=== PATIENT | male | born 1990 | race Caucasian/White ===

== ENCOUNTER 2018-12-10 12:35 | Inpatient (IN) | payer OTHER ==
[~2018-12-10 12:35] MED LIST: METHADONE HCL 10 MG TABLET (FOR DETOX USE ONLY) PO ONE
--- NOTE | 2018-12-10 13:54 | HP ---
COWS - Scale Resting Pulse: 1= [place] 81-100 Sweatin=Flushed/Facial Moisture Restless Observation: 1= Difficult to Sit Still Pupil Size: 1= Pupils >than Normal Bone or Joint Aches: 2= Severe Diffuse Aches Runny Nose/ Eye Tearin= Runny Nose/Eyes GI Upset > 30mins: 2= Nausea/Diarrhea Tremor Observation: 1= Tremor [place], Not Seen Yawning Observation: 0= None Anxiety or Irritability: 2=Irritable/Anxious Goose Flesh Skin: 0=Smooth Skin COWS Score: 14 CIWA Score - Admission Criteria OASAS Guidelines: Admission for Medically Managed Detox: Requires at least one of the followin. CIWA greater than 12 2. Seizures within the past 24 hours 3. Delirium tremens within the past 24 hours 4. Hallucinations within the past 24 hours 5. Acute intervention needed for co occurring medical disorder 6. Acute intervention needed for co occurring psychiatric disorder 7. Severe withdrawal that cannot be handled at a lower level of care (continued vomiting, continued diarrhea, abnormal vital signs) requiring intravenous medication and/or fluids 8. Admission ROS [facility] - [facility] Chief Complaint: " I am going through withdrawal" Allergies/Adverse Reactions: Allergies Allergy/AdvReac Type Severity Reaction Status Date / Time No Known Allergies Allergy Verified 12/10/18 13:15 History of Present Illness: 28 yo male with hx heroin (IV), nicotine and marijuana dependence is here seeking detox d/t withdrawal sx. Reports currently using 6 - 7 bags per day , use since age 20, reports using this amount over the past three months. Utox positive for THC and MOP, KATHERINE = 0.00. Denies medical or psych hx. Denies suicidal / homicidal ideation Denies hx of overdose, blackouts or seizure Reports longest period of sobriety four years, reports relapse three months ago. Last detox [facility] 2013 Exam Limitations: No Limitations - Ebola screening Have you traveled outside of the country in the last 21 days: No Have you had contact with anyone from an Ebola affected area: No Do you have a fever: No - Review of Systems Constitutional: Chills, Loss of Appetite, Changes in sleep, Weakness ( hot and cold) EENT: reports: Tearing, Nose Congestion Respiratory: reports: No Symptoms reported Cardiac: reports: No Symptoms Reported GI: reports: Constipated (last BMtwo days ago), Nausea, Poor Appetite, Poor Fluid Intake Musculoskeletal: reports: Back Pain, Joint Pain Integumentary: reports: No Symptoms Reported Neuro: reports: Weakness Endocrine: reports: See HPI, Increased Thirst Hematology: reports: No Symptoms Reported Psychiatric: reports: Orientated x3, Anxious Other Systems: Reviewed and Negative Patient History - Patient Medical History Hx Anemia: No Hx Asthma: No Hx Chronic Obstructive Pulmonary Disease (COPD): No Hx Cancer: No Hx Cardiac Disorders: No Hx Congestive Heart Failure: No Hx Hypertension: No Hx Hypercholesterolemia: No Hx Pacemaker: No HX Cerebrovascular Accident: No Hx Seizures: No Hx Dementia: No Hx Diabetes: No Hx Gastrointestinal Disorders: No Hx Liver Disease: No Hx Genitourinary Disorders: No Hx Sexually Transmitted Disorders: No Hx Renal Disease (ESRD): No Hx Thyroid Disease: No Hx Human Immunodeficiency Virus (HIV): No (last tested 05/23 did not want to be tested) Hx Hepatitis C: No Hx Depression: No Hx Suicide Attempt: No Hx Bipolar Disorder: No Hx Schizophrenia: No - Patient Surgical History Past Surgical History: No Hx Neurologic Surgery: No Hx Cataract Extraction: No Hx Cardiac Surgery: No Hx Lung Surgery: No Hx Breast Surgery: No Hx Breast Biopsy: No Hx Abdominal Surgery: No Hx Appendectomy: No Hx Cholecystectomy: No Hx Genitourinary Surgery: No Hx Section: No Hx Orthopedic Surgery: No Anesthesia Reaction: No - PPD History Previous Implant?: No Date: 11/18/13 Results: 0mm PPD to be Administered?: Yes - Smoking Cessation Smoking history: Current every day smoker Have you smoked in the past 12 months: Yes Aproximately how many cigarettes per day: 7 Cigars Per Day: 0 Hx Chewing Tobacco Use: No Initiated information on smoking cessation: Yes 'Breaking Loose' booklet given: 12/10/18 - Substance & Tx. History Hx Alcohol Use: Yes Hx Substance Use: Yes Substance Use Type: Alcohol, Heroin, Marijuana Hx Substance Use Treatment: Yes (Detox [facility] 2013) - Substances abused Heroin Substance route: Injection Frequency: Daily Amount used: 6 bags Age of first use: 20 Date of last use: 12/10/18 Alcohol Substance route: Oral Frequency: 1-2 times per week Amount used: 1 beer x 24 oz Age of first use: 16 Date of last use: 12/08/18 Marijuana/Hashish Substance route: Smoking Frequency: Daily Amount used: $10 Age of first use: 16 Date of last use: 12/10/18 Family Disease History - Family Disease History Family History: Denies Admission Physical Exam [facility] - Vital Signs Vital Signs: Vital Signs - 24 hr 12/10/18 12/10/18 13:10 13:42 Temperature 98.1 F 98.2 F Pulse Rate 82 82 Respiratory 18 18 Rate Blood Pressure 141/86 141/86 - Physical General Appearance: Yes: Mild Distress, Thin, Sweating, Anxious HEENTM: Yes: EOMI, Hearing grossly Normal, Normal ENT Inspection, Normocephalic , Normal Voice, MARYSOL, Pharynx Normal, Tm's normal, Rhinorrhea Respiratory: Yes: Chest Non-Tender, Lungs Clear, Normal Breath Sounds, No Respiratory Distress, No Accessory Muscle Use Neck: Yes: Within Normal Limits Breast: Yes: Breast Exam Deferred Cardiology: Yes: Regular Rhythm, Regular Rate Abdominal: Yes: Normal Bowel Sounds, Non Tender, Flat, Soft Genitourinary: Yes: Within Normal Limits Back: Yes: Normal Inspection Musculoskeletal: Yes: full range of Motion, Gait Steady, Pelvis Stable Extremities: Yes: Normal Capillary Refill, Normal Inspection, Normal Range of Motion, Non-Tender 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, Fully Oriented, Alert, Motor Strength 5/5, Depressed Affect Integumentary: Yes: Normal Color, Warm, Diaphoresis, Track [place], Other (facial flushing) Lymphatic: Yes: Within Normal Limits - Diagnostic (1) Opioid dependence with withdrawal Current Visit: Yes Status: Acute (2) Elevated blood pressure reading without diagnosis of hypertension Current Visit: Yes Status: Acute (3) Cannabis dependence Current Visit: Yes Status: Acute (4) Nicotine dependence Current Visit: Yes Status: Acute Qualifiers: Nicotine product type: cigarettes Cleared for Admission [facility] - Detox or Rehab [facility] Level of Care: Medically Managed Detox Regimen/Protocol: Methadone Breathalyzer - Breathalyzer Breathalyzer: 0 Urine Drug Screen - Test Device Lot number: [id number] Expiration date: 08/09/20 - Control Is test valid?: Yes - Results Urine drug screen results: THC-Marijuana, MOP-Opiates Inpatient Rehab Admission - Rehab Decision to Admit Inpatient rehab admission?: No
[2018-12-10] MEDS ORDERED: cloNIDine HCL 0.1 MG TABLET PO PRN (13:59)
[2018-12-10] MEDS ORDERED: MAGNESIUM HYDROX 2400MG/30ML ORAL SUSPENSION 30 ML CUP PO PRN (14:01)
[2018-12-10] MEDS ORDERED: BISMUTH SUBSALICYLATE 524 MG/30 ML UD PO PRN (14:01)
[2018-12-10] MEDS ORDERED: hydrOXYzine PAMOATE 25 MG CAPSULE (FP) PO PRN (14:01)
[2018-12-10] MEDS ORDERED: MAGNESIUM CITRATE 300 ML BOTTLE PO PRN (14:01)
[2018-12-10] MEDS ORDERED: ACETAMINOPHEN 325 MG TABLET (FP) PO PRN ×2 (14:01)
[2018-12-10] MEDS ORDERED: IBUPROFEN 400 MG TABLET (FP) PO PRN (14:01)
[2018-12-10] MEDS ORDERED: MAG HYDROX/AL HYDROX/SIMETH 30 ML UNIT-DOSE CUP PO PRN (14:01)
[2018-12-10] MEDS ORDERED: METHADONE HCL 10 MG TABLET (FOR DETOX USE ONLY) PO ONE ×2 (14:45→23:00)
[2018-12-10] MEDS: NICOTINE POLACRILEX 2 MG GUM BUC PRN ×3 (15:14→22:14)
[2018-12-10 17:02] LABS: HEMATOCRIT 43.5 % (35.4-49); HEMOGLOBIN 14.8 GM/dL (11.7-16.9); MCH 31.1 pg (25.7-33.7); MCHC 34.1 g/dl (32.0-35.9); MEAN CELL VOLUME 91.3 fl (80-96); MEAN PLT VOLUME 9.4 fl (7.5-11.1); PLATELET COUNT 208 K/MM3 (134-434); RBC 4.76 M/mm3 (4.00-5.60); RDW 12.9 % (11.9-15.9); WHITE BLOOD COUNT 9.3 K/mm3 (4.0-10.0)
[2018-12-10 17:39] LABS: ALK PHOS 78 U/L (45-117); ANION GAP 5 MMOL/L (8-16); BILIRUBIN,TOTAL 0.6 mg/dL (0.2-1); BLOOD UREA NITROGEN 10 mg/dL (7-18); CALCIUM 8.8 mg/dL (8.5-10.1); CHLORIDE 107 mmol/L (98-107); CO2 28 mmol/L (21-32); CREATININE 0.9 mg/dL (0.55-1.3); GLUCOSE,RANDOM 92 mg/dL (74-106); SGOT/AST 14 U/L (15-37); SGPT/ALT 31 U/L (13-61); SODIUM 140 mmol/L (136-145)
[2018-12-10] MEDS: diazePAM 5 MG TABLET PO PRN (18:05)
[2018-12-10 19:49] LABS: URINE APPEARANCE CLEAR; URINE BILIRUBIN NEGATIVE (NEGATIVE); URINE COLOR YELLOW; URINE GLUCOSE (UA) 2+ (NEGATIVE); URINE KETONE TRACE (NEGATIVE); URINE LEUK ESTERASE NEGATIVE (NEGATIVE); URINE NITRITE NEGATIVE (NEGATIVE); URINE PROTEIN NEGATIVE (NEGATIVE)
[2018-12-10] MEDS: MELATONIN 5 MG TABLETS PO PRN (22:12)
[2018-12-10] MEDS: THIAMINE HCL 100 MG TABLET (FP) PO SCH (22:12)
--- NOTE | 2018-12-11 09:47 | PN ---
BHS COWS - Scale Resting Pulse: 0= [place] 80 or Below Sweatin=Flushed/Facial Moisture Restless Observation: 1= Difficult to Sit Still Pupil Size: 0= Normal to Room Light Bone or Joint Aches: 0= None Runny Nose/ Eye Tearin= Nasal Congestion GI Upset > 30mins: 1= Stomach Cramp Tremor Observation of Outstretched Hands: 2= Slight Tremor Visible Yawning Observation: 2= >3x During Session Anxiety or Irritability: 2=Irritable/Anxious Goose Flesh Skin: 0=Smooth Skin COWS Score: 11 BHS Progress Note (SOAP) Subjective: agitation anxiety sweats shakes interrupted sleep body aches Objective: 12/11/18 09:45 Vital Signs Temperature 97.0 F L 12/11/18 09:12 Pulse Rate 70 12/11/18 09:12 Respiratory Rate 18 12/11/18 09:12 Blood Pressure 131/89 12/11/18 09:12 O2 Sat by Pulse Oximetry (%) Laboratory Tests 12/10/18 12/10/18 12/10/18 14:20 14:20 14:20 WBC 9.3 RBC 4.76 Hgb 14.8 Hct 43.5 MCV 91.3 MCH 31.1 MCHC 34.1 RDW 12.9 Plt Count 208 MPV 9.4 Sodium 140 Potassium 4.0 Chloride 107 Carbon Dioxide 28 Anion Gap 5 L BUN 10 Creatinine 0.9 Creat Clearance w eGFR 101.22 Random Glucose 92 Calcium 8.8 Total Bilirubin 0.6 AST 14 L ALT 31 Alkaline Phosphatase 78 Total Protein 7.0 Albumin 4.0 Urine Color Urine Appearance Urine pH Ur Specific [place] Urine Protein Urine Glucose (UA) Urine Ketones Urine Blood Urine Nitrite Urine Bilirubin Urine Urobilinogen Ur Leukocyte Esterase HIV 1&2 Antibody Screen Negative HIV P24 Antigen Negative 12/10/18 16:40 WBC RBC Hgb Hct MCV MCH MCHC RDW Plt Count MPV Sodium Potassium Chloride Carbon Dioxide Anion Gap BUN Creatinine Creat Clearance w eGFR Random Glucose Calcium Total Bilirubin AST ALT Alkaline Phosphatase Total Protein Albumin Urine Color Yellow Urine Appearance Clear Urine pH 5.0 Ur Specific [place] 1.022 Urine Protein Negative Urine Glucose (UA) 2+ H Urine Ketones Trace H Urine Blood Negative Urine Nitrite Negative Urine Bilirubin Negative Urine Urobilinogen 1.0 Ur Leukocyte Esterase Negative HIV 1&2 Antibody Screen HIV P24 Antigen aaox3 ambulating no acute distress Assessment: 12/11/18 09:46 withdrawal sx Plan: continue detox increase fluids labs pending
[2018-12-11] MEDS ORDERED: METHADONE HCL 10 MG TABLET (FOR DETOX USE ONLY) PO ONE (10:00)
[2018-12-11] MEDS ORDERED: NICOTINE 14 MG/24 HOURS TOPICAL PATCH TD SCH (10:00)
--- NOTE | 2018-12-11 10:09 | EKG ---
Test Reason : Blood Pressure : / mmHG Vent. Rate : 073 BPM Atrial Rate : 073 BPM P-R Int : 110 ms QRS Dur : 088 ms QT Int : 364 ms P-R-T Axes : 067 081 058 degrees QTc Int : 401 ms SINUS RHYTHM WITH MARKED SINUS ARRHYTHMIA WITH SHORT VT OTHERWISE NORMAL ECG NO PREVIOUS ECGS AVAILABLE Confirmed by ZACH BURGOS MD ([id number]) on 12/11/2018 10:08:51 AM Referred By: Confirmed By:ZACH BURGOS MD
[2018-12-11] MEDS: PRENATAL VITAMINS W/ FOLIC ACID TABLET (FP) PO SCH (10:13)
[2018-12-11] MEDS: diazePAM 5 MG TABLET PO PRN ×3 (12:42→22:12)
[2018-12-11] MEDS: NICOTINE POLACRILEX 2 MG GUM BUC PRN ×4 (12:43→22:10)
[2018-12-11] MEDS: METHOCARBAMOL 500 MG TABLET PO PRN (15:31)
[2018-12-11] MEDS: MENTHOL/PHENOL 1 EACH UD MM PRN (17:36)
[2018-12-11] MEDS: THIAMINE HCL 100 MG TABLET (FP) PO SCH (22:09)
[2018-12-11] MEDS: MELATONIN 5 MG TABLETS PO PRN (22:10)
[2018-12-12] MEDS ORDERED: NICOTINE POLACRILEX 2 MG GUM BC PRN (09:23)
[2018-12-12] MEDS ORDERED: METHADONE HCL 10 MG TABLET (FOR DETOX USE ONLY) PO ONE (10:00)
[2018-12-12] MEDS: NICOTINE 21 MG/24 HOURS TOPICAL PATCH TD SCH (10:25)
[2018-12-12] MEDS: PRENATAL VITAMINS W/ FOLIC ACID TABLET (FP) PO SCH (10:25)
--- NOTE | 2018-12-12 10:37 | PN ---
BHS COWS - Scale Resting Pulse: 1= [place] 81-100 Sweatin= Chills/Flushing Restless Observation: 1= Difficult to Sit Still Pupil Size: 1= Pupils >than Normal Bone or Joint Aches: 2= Severe Diffuse Aches Runny Nose/ Eye Tearin= Runny Nose/Eyes GI Upset > 30mins: 2= Nausea/Diarrhea Tremor Observation of Outstretched Hands: 2= Slight Tremor Visible Yawning Observation: 1= 1-2x During Session Anxiety or Irritability: 2=Irritable/Anxious Goose Flesh Skin: 0=Smooth Skin COWS Score: 15 S Progress Note (SOAP) Subjective: alert,irritable,anxious,interrupted sleep,pain in the body and back Objective: 12/12/18 10:35 Vital Signs Temperature 97.1 F L 12/12/18 10:13 Pulse Rate 86 12/12/18 10:13 Respiratory Rate 18 12/12/18 10:13 Blood Pressure 148/82 12/12/18 10:13 O2 Sat by Pulse Oximetry (%) 12/12/18 10:36 Laboratory Last Values WBC 9.3 K/mm3 (4.0-10.0) 12/10/18 14:20 RBC 4.76 M/mm3 (4.00-5.60) 12/10/18 14:20 Hgb 14.8 GM/dL (11.7-16.9) 12/10/18 14:20 Hct 43.5 % (35.4-49) 12/10/18 14:20 MCV 91.3 fl (80-96) 12/10/18 14:20 MCH 31.1 pg (25.7-33.7) 12/10/18 14:20 MCHC 34.1 g/dl (32.0-35.9) 12/10/18 14:20 RDW 12.9 % (11.9-15.9) 12/10/18 14:20 Plt Count 208 K/MM3 (134-434) 12/10/18 14:20 MPV 9.4 fl (7.5-11.1) 12/10/18 14:20 Sodium 140 mmol/L (136-145) 12/10/18 14:20 Potassium 4.0 mmol/L (3.5-5.1) 12/10/18 14:20 Chloride 107 mmol/L (98-107) 12/10/18 14:20 Carbon Dioxide 28 mmol/L (21-32) 12/10/18 14:20 Anion Gap 5 MMOL/L (8-16) L 12/10/18 14:20 BUN 10 mg/dL (7-18) 12/10/18 14:20 Creatinine 0.9 mg/dL (0.55-1.3) 12/10/18 14:20 Creat Clearance w eGFR 101.22 (>60) 12/10/18 14:20 Random Glucose 92 mg/dL (74-106) 12/10/18 14:20 Calcium 8.8 mg/dL (8.5-10.1) 12/10/18 14:20 Total Bilirubin 0.6 mg/dL (0.2-1) 12/10/18 14:20 AST 14 U/L (15-37) L 12/10/18 14:20 ALT 31 U/L (13-61) 12/10/18 14:20 Alkaline Phosphatase 78 U/L (45-117) 12/10/18 14:20 Total Protein 7.0 g/dl (6.4-8.2) 12/10/18 14:20 Albumin 4.0 g/dl (3.4-5.0) 12/10/18 14:20 Urine Color Yellow 12/10/18 16:40 Urine Appearance Clear 12/10/18 16:40 Urine pH 5.0 (5.0-8.0) 12/10/18 16:40 Ur Specific [place] 1.022 (1.010-1.035) 12/10/18 16:40 Urine Protein Negative (NEGATIVE) 12/10/18 16:40 Urine Glucose (UA) 2+ (NEGATIVE) H 12/10/18 16:40 Urine Ketones Trace (NEGATIVE) H 12/10/18 16:40 Urine Blood Negative (NEGATIVE) 12/10/18 16:40 Urine Nitrite Negative (NEGATIVE) 12/10/18 16:40 Urine Bilirubin Negative (NEGATIVE) 12/10/18 16:40 Urine Urobilinogen 1.0 mg/dL (0.2-1.0) 12/10/18 16:40 Ur Leukocyte Esterase Negative (NEGATIVE) 12/10/18 16:40 RPR Titer Nonreactive (NONREACTIVE) 12/10/18 14:20 HIV 1&2 Antibody Screen Negative 12/10/18 14:20 HIV P24 Antigen Negative 12/10/18 14:20 Assessment: 12/12/18 10:36 withdrawal symptom Plan: continue detox
[2018-12-12] MEDS: diazePAM 5 MG TABLET PO PRN ×3 (10:52→21:52)
[2018-12-12] MEDS: NICOTINE POLACRILEX 2 MG GUM BUC PRN ×3 (16:38→21:53)
[2018-12-12] MEDS: MELATONIN 5 MG TABLETS PO PRN (21:52)
[2018-12-12] MEDS: THIAMINE HCL 100 MG TABLET (FP) PO SCH (21:52)
[2018-12-13] MEDS ORDERED: METHADONE HCL 10 MG TABLET (FOR DETOX USE ONLY) PO ONE (10:00)
[2018-12-13] MEDS: NICOTINE 21 MG/24 HOURS TOPICAL PATCH TD SCH (10:23)
[2018-12-13] MEDS: PRENATAL VITAMINS W/ FOLIC ACID TABLET (FP) PO SCH (10:23)
[2018-12-13] MEDS: diazePAM 5 MG TABLET PO PRN (10:27)
[2018-12-13] MEDS: NICOTINE POLACRILEX 2 MG GUM BUC PRN ×4 (10:28→22:12)
--- NOTE | 2018-12-13 10:58 | PN ---
S Progress Note (SOAP) Subjective: alert,irritable,anxious,interrupted sleep,nasal congestion Objective: 12/13/18 10:58 Vital Signs Temperature 98.5 F 12/13/18 09:35 Pulse Rate 85 12/13/18 09:35 Respiratory Rate 18 12/13/18 09:35 Blood Pressure 147/73 12/13/18 09:35 O2 Sat by Pulse Oximetry (%) Assessment: 12/13/18 10:58 withdrawal symptom Plan: continue detox,discharge in am
[2018-12-13] MEDS: METHOCARBAMOL 500 MG TABLET PO PRN (14:33)
[2018-12-13] MEDS: P-EPHED 60MG/TRIPROLIDI 2.5MG TABLET PO PRN (14:41)
[2018-12-13] MEDS: THIAMINE HCL 100 MG TABLET (FP) PO SCH (22:11)
[2018-12-13] MEDS: MELATONIN 5 MG TABLETS PO PRN (22:11)
[2018-12-14] MEDS: NICOTINE POLACRILEX 2 MG GUM BUC PRN (05:54)
[2018-12-14] MEDS ORDERED: METHADONE HCL 5 MG TABLET (FOR DETOX USE ONLY) PO ONE (06:00)
[2018-12-14 06:20] VITALS: BP 117/67; PULSE 68; TEMP 97.2
[2018-12-14] MEDS: P-EPHED 60MG/TRIPROLIDI 2.5MG TABLET PO PRN (07:42)
[2018-12-14] MEDS: MENTHOL/PHENOL 1 EACH UD MM PRN (07:43)
--- NOTE | 2018-12-14 15:09 | DS ---
[facility] Detox Discharge Summary Admission Date: 12/10/18 Discharge Date: 12/14/18 - History Additional Comments: Pt discharged s/p completion of detox. Verbalized feeling good. Pt states he does not want rehab because he has to return to work, educated pt about out patient rehab and suboxone treatment option. Verbalized understanding and stated he will explore options. He will do NA meeting in the meantime. Narcan rx sent to [facility] pharmacy, verbalized understanding to pick it. Pt was in no distress and ambulated steadily. - Physical Exam Results Vital Signs: Vital Signs Temperature 97.2 F L 12/14/18 06:00 Pulse Rate 68 12/14/18 06:00 Respiratory Rate 18 12/14/18 06:00 Blood Pressure 117/67 12/14/18 06:00 O2 Sat by Pulse Oximetry (%) - Treatment Hospital Course: Detox Protocol Followed, Detoxed Safely, Responded well, Discharged Condition Good - Medication Discharge Medications: Ambulatory Orders Naloxone HCl [Narcan] 4 mg NS PRN #1 spray 12/14/18 - AMA Did Patient Leave Against Medical Advice: No
== END 2018-12-14 08:55 | disposition home or self-care (01) | DRG 773 ==
LOC: YASAS 12:35 → Y6N 14:32
PROVIDERS: ADMIT Surgery; ATTEND Surgery
PROC: HZ2ZZZZ Detoxification Services for Substance Abuse Treatment (ICD-10-PCS; principal; 2018-12-10)
DX: F11.23 Opioid dependence with withdrawal (principal); F10.20 Alcohol dependence, uncomplicated; F12.20 Cannabis dependence, uncomplicated; F17.210 Nicotine dependence, cigarettes, uncomplicated; R03.0 Elevated blood-pressure reading, without diagnosis of hypertension
CPT/HCPCS: 36415; 80053; 81003; 85027; 86593; 87389; 93005; 93010; J0735

== ENCOUNTER 2019-02-02 19:26 | Inpatient (IN) | payer SELFPAY ==
[2019-02-02 20:08] VITALS: BMI 23.0
--- NOTE | 2019-02-02 22:37 | HP ---
COWS - Scale Resting Pulse: 0= [place] 80 or Below Sweatin=Flushed/Facial Moisture Restless Observation: 1= Difficult to Sit Still Pupil Size: 0= Normal to Room Light Bone or Joint Aches: 4=Acute Joint/Muscle Pain Runny Nose/ Eye Tearin= Runny Nose/Eyes GI Upset > 30mins: 3= Vomiting/Diarrhea (vomiting x 5, no diarrhea) Tremor Observation: 2= Slight Tremor Visible Yawning Observation: 1= 1-2x During Session Anxiety or Irritability: 2=Irritable/Anxious Goose Flesh Skin: 3=Piloerection COWS Score: 20 CIWA Score - Admission Criteria OASAS Guidelines: Admission for Medically Managed Detox: Requires at least one of the followin. CIWA greater than 12 2. Seizures within the past 24 hours 3. Delirium tremens within the past 24 hours 4. Hallucinations within the past 24 hours 5. Acute intervention needed for co occurring medical disorder 6. Acute intervention needed for co occurring psychiatric disorder 7. Severe withdrawal that cannot be handled at a lower level of care (continued vomiting, continued diarrhea, abnormal vital signs) requiring intravenous medication and/or fluids 8. Admission [facility] Chief Complaint: Heroin withdrawal symptoms Allergies/Adverse Reactions: Allergies Allergy/AdvReac Type Severity Reaction Status Date / Time No Known Allergies Allergy Verified 02/02/19 22:43 History of Present Illness: 28 years old male with 12 years of heroin dependence is seeking admission to detox. Patient has been in previous detox, last at [facility] and reports 3 years of sobriety. He has history of hypertension and denies suicidal ideation at this time. Exam Limitations: No Limitations - Ebola screening Have you traveled outside of the country in the last 21 days: No (N) Have you had contact with anyone from an Ebola affected area: No Do you have a fever: No - Review of Systems Constitutional: Chills, Loss of Appetite, Malaise, Night Sweats, Changes in sleep EENT: reports: Nose Congestion Respiratory: reports: No Symptoms reported Cardiac: reports: No Symptoms Reported GI: reports: Diarrhea, Nausea, Poor Appetite, Poor Fluid Intake, Abdominal cramping : reports: No Symptoms Reported Musculoskeletal: reports: Joint Pain Integumentary: reports: Dryness, Flushing Neuro: reports: Tremors Endocrine: reports: No Symptoms Reported Hematology: reports: No Symptoms Reported Psychiatric: reports: Mood/Affect Appropiate, Orientated x3, Anxious Other Systems: Reviewed and Negative Patient History - Patient Medical History Hx Anemia: No Hx Asthma: No Hx Chronic Obstructive Pulmonary Disease (COPD): No Hx Cancer: No Hx Cardiac Disorders: No Hx Congestive Heart Failure: No Hx Hypertension: Yes (Not on medication) Hx Hypercholesterolemia: No Hx Pacemaker: No HX Cerebrovascular Accident: No Hx Seizures: No Hx Dementia: No Hx Diabetes: No Hx Gastrointestinal Disorders: No Hx Liver Disease: No Hx Genitourinary Disorders: No Hx Sexually Transmitted Disorders: No Hx Renal Disease (ESRD): No Hx Thyroid Disease: No Hx Human Immunodeficiency Virus (HIV): No (Negative 2019) Hx Hepatitis C: No Hx Depression: No Hx Suicide Attempt: No (Denies suicidal ideation at this time) Hx Bipolar Disorder: No Hx Schizophrenia: No - Patient Surgical History Past Surgical History: No Hx Neurologic Surgery: No Hx Cataract Extraction: No Hx Cardiac Surgery: No Hx Lung Surgery: No Hx Abdominal Surgery: No Hx Appendectomy: No Hx Cholecystectomy: No Hx Genitourinary Surgery: No Hx Orthopedic Surgery: No Anesthesia Reaction: No - PPD History Previous Implant?: Yes Documented Results: Negative w/proof Implanted On Prior R Admission?: Yes Date: 11/16/13 Results: 0mm PPD to be Administered?: Yes - Reproductive History Patient is a Female of Child Bearing Age (11 -55 yrs old): No (male) - Smoking Cessation Smoking history: Current every day smoker Have you smoked in the past 12 months: Yes Aproximately how many cigarettes per day: 10 Cigars Per Day: 0 Hx Chewing Tobacco Use: No Initiated information on smoking cessation: Yes 'Breaking Loose' booklet given: 02/02/19 - Substance & Tx. History Hx Alcohol Use: No Hx Substance Use: Yes Substance Use Type: Cocaine, Heroin, Marijuana Hx Substance Use Treatment: Yes ([facility]) - Substances abused Heroin Substance route: Injection Frequency: Daily Amount used: 6 bags Age of first use: 20 Date of last use: 12/10/18 Marijuana/Hashish Substance route: Smoking Frequency: Daily Amount used: $10 Age of first use: 16 Date of last use: 12/10/18 PCP Substance route: Oral Frequency: 1-2 times per week Amount used: 1 beer x 24 oz Age of first use: 16 Date of last use: 12/08/18 Alcohol Substance route: Oral Frequency: 1-2 times per week Amount used: 1 beer x 24 oz Age of first use: 16 Date of last use: 12/08/18 Family Disease History - Family Disease History Family History: Denies Admission Physical Exam [facility] - Vital Signs Vital Signs: Vital Signs - 24 hr 02/02/19 20:06 Temperature 97.5 F L Pulse Rate 74 Respiratory 18 Rate Blood Pressure 150/89 - Physical General Appearance: Yes: Moderate Distress, Tremorous, Anxious HEENTM: Yes: Within Normal Limits Respiratory: Yes: Lungs Clear, Normal Breath Sounds, No Respiratory Distress Neck: Yes: Supple Breast: Yes: Breast Exam Deferred Cardiology: Yes: Regular Rhythm, Regular Rate Abdominal: Yes: Normal Bowel Sounds, Soft Genitourinary: Yes: Within Normal Limits Back: Yes: Normal Inspection Musculoskeletal: Yes: Within Normal Limits Extremities: Yes: Tremors Neurological: Yes: Alert, Normal Mood/Affect Integumentary: Yes: Warm Lymphatic: Yes: Within Normal Limits - Diagnostic (1) Cocaine dependence Current Visit: Yes Status: Chronic Qualifiers: Substance use status: in withdrawal Qualified Code(s): F14.23 - Cocaine dependence with withdrawal (2) Cannabis dependence Current Visit: Yes Status: Chronic (3) Elevated blood pressure reading without diagnosis of hypertension Current Visit: Yes Status: Acute (4) Nicotine dependence Current Visit: Yes Status: Chronic Qualifiers: Nicotine product type: cigarettes Substance use status: uncomplicated Qualified Code(s): F17.210 - Nicotine dependence, cigarettes, uncomplicated (5) Opioid dependence with withdrawal Current Visit: Yes Status: Chronic Cleared for Admission [facility] - Detox or Rehab [facility] Level of Care: Medically Managed Detox Regimen/Protocol: Methadone Breathalyzer - Breathalyzer Breathalyzer: 0 Urine Drug Screen - Test Device Lot number: [id number] Expiration date: 10/10/20 - Control Is test valid?: Yes - Results Drug screen NEGATIVE: No Urine drug screen results: THC-Marijuana, RIC-Cocaine, FEN-Fentanyl, MOP-Opiates Inpatient Rehab Admission - Rehab Decision to Admit Inpatient rehab admission?: No
[2019-02-02] MEDS ORDERED: BISMUTH SUBSALICYLATE 524 MG/30 ML UD PO PRN (22:45)
[2019-02-02] MEDS ORDERED: MAGNESIUM HYDROX 2400MG/30ML ORAL SUSPENSION 30 ML CUP PO PRN (22:45)
[2019-02-02] MEDS ORDERED: MAG HYDROX/AL HYDROX/SIMETH 30 ML UNIT-DOSE CUP PO PRN (22:45)
[2019-02-02] MEDS ORDERED: MAGNESIUM CITRATE 300 ML BOTTLE PO PRN (22:45)
[2019-02-02] MEDS ORDERED: METHOCARBAMOL 500 MG TABLET PO PRN (22:45)
[2019-02-02] MEDS ORDERED: ACETAMINOPHEN 325 MG TABLET (FP) PO PRN ×2 (22:45)
[2019-02-02] MEDS ORDERED: IBUPROFEN 400 MG TABLET (FP) PO PRN (22:45)
[2019-02-02] MEDS ORDERED: MELATONIN 5 MG TABLETS PO PRN (22:45)
[2019-02-02] MEDS ORDERED: cloNIDine HCL 0.1 MG TABLET PO PRN (22:45)
[2019-02-02] MEDS ORDERED: MENTHOL/PHENOL 1 EACH UD MM PRN (22:45)
[2019-02-02] MEDS ORDERED: METHADONE HCL 10 MG TABLET (FOR DETOX USE ONLY) PO ONE (23:00)
[2019-02-02] MEDS: NICOTINE POLACRILEX 2 MG GUM BUC PRN (23:38)
--- NOTE | 2019-02-03 09:36 | PN ---
BHS COWS - Scale Resting Pulse: 1= [place] 81-100 Sweatin= Chills/Flushing Restless Observation: 0= Sits Still Pupil Size: 1= Pupils >than Normal Bone or Joint Aches: 2= Severe Diffuse Aches Runny Nose/ Eye Tearin= Nasal Congestion GI Upset > 30mins: 2= Nausea/Diarrhea Tremor Observation of Outstretched Hands: 2= Slight Tremor Visible Yawning Observation: 1= 1-2x During Session Anxiety or Irritability: 2=Irritable/Anxious Goose Flesh Skin: 3=Piloerection COWS Score: 16 BHS Progress Note (SOAP) Subjective: doing well with methadone detox regimen discuss medication assisted maintenance treatment program Objective: 02/03/19 09:36 Vital Signs Temperature 97.0 F L 02/03/19 09:17 Pulse Rate 88 02/03/19 09:17 Respiratory Rate 18 02/03/19 09:17 Blood Pressure 111/75 02/03/19 09:17 O2 Sat by Pulse Oximetry (%) 02/03/19 09:36 lab pending or see 12/2018 Assessment: 02/03/19 09:37 opiate withdrawal sx Plan: continue detox
[2019-02-03 09:55] LABS: HEMATOCRIT 44.3 % (35.4-49); HEMOGLOBIN 14.7 GM/dL (11.7-16.9); MCH 30.4 pg (25.7-33.7); MCHC 33.2 g/dl (32.0-35.9); MEAN CELL VOLUME 91.6 fl (80-96); MEAN PLT VOLUME 9.1 fl (7.5-11.1); PLATELET COUNT 263 K/MM3 (134-434); RBC 4.83 M/mm3 (4.00-5.60); RDW 12.9 % (11.9-15.9); WHITE BLOOD COUNT 9.6 K/mm3 (4.0-10.0)
[2019-02-03] MEDS ORDERED: METHADONE HCL 10 MG TABLET (FOR DETOX USE ONLY) PO ONE (10:00)
[2019-02-03] MEDS: PRENATAL VITAMINS W/ FOLIC ACID TABLET (FP) PO SCH (10:12)
[2019-02-03] MEDS: NICOTINE 14 MG/24 HOURS TOPICAL PATCH TD SCH (10:12)
[2019-02-03] MEDS: NICOTINE POLACRILEX 2 MG GUM BUC PRN ×6 (10:12→21:40)
[2019-02-03 10:32] LABS: ALBUMIN 4.2 g/dl (3.4-5.0); BILIRUBIN,TOTAL 0.4 mg/dL (0.2-1); CALCIUM 9.2 mg/dL (8.5-10.1); POTASSIUM 4.1 mmol/L (3.5-5.1)
[2019-02-03] MEDS: THIAMINE HCL 100 MG TABLET (FP) PO SCH (21:19)
[2019-02-03] MEDS: hydrOXYzine PAMOATE 25 MG CAPSULE (FP) PO PRN (21:50)
[2019-02-04] MEDS ORDERED: METHADONE HCL 10 MG TABLET (FOR DETOX USE ONLY) PO ONE (10:00)
[2019-02-04] MEDS: NICOTINE 14 MG/24 HOURS TOPICAL PATCH TD SCH (10:18)
[2019-02-04] MEDS: PRENATAL VITAMINS W/ FOLIC ACID TABLET (FP) PO SCH (10:18)
[2019-02-04] MEDS: NICOTINE POLACRILEX 2 MG GUM BUC PRN ×6 (10:22→21:23)
--- NOTE | 2019-02-04 11:13 | PN ---
S COWS - Scale Resting Pulse: 0= [place] 80 or Below Sweatin= Chills/Flushing Restless Observation: 0= Sits Still Pupil Size: 1= Pupils >than Normal Bone or Joint Aches: 2= Severe Diffuse Aches Runny Nose/ Eye Tearin= Nasal Congestion GI Upset > 30mins: 1= Stomach Cramp Tremor Observation of Outstretched Hands: 2= Slight Tremor Visible Yawning Observation: 2= >3x During Session Anxiety or Irritability: 2=Irritable/Anxious Goose Flesh Skin: 0=Smooth Skin COWS Score: 12 S Progress Note (SOAP) Subjective: discuss medication assisted maintenance treatment program body aches otherwise doing ok today Objective: 02/04/19 11:20 Vital Signs Temperature 96.6 F L 02/04/19 09:04 Pulse Rate 66 02/04/19 09:04 Respiratory Rate 16 02/04/19 09:04 Blood Pressure 102/57 L 02/04/19 09:04 O2 Sat by Pulse Oximetry (%) Laboratory Last Values WBC 9.6 K/mm3 (4.0-10.0) 02/03/19 07:50 RBC 4.83 M/mm3 (4.00-5.60) 02/03/19 07:50 Hgb 14.7 GM/dL (11.7-16.9) 02/03/19 07:50 Hct 44.3 % (35.4-49) 02/03/19 07:50 MCV 91.6 fl (80-96) 02/03/19 07:50 MCH 30.4 pg (25.7-33.7) 02/03/19 07:50 MCHC 33.2 g/dl (32.0-35.9) 02/03/19 07:50 RDW 12.9 % (11.9-15.9) 02/03/19 07:50 Plt Count 263 K/MM3 (134-434) D 02/03/19 07:50 MPV 9.1 fl (7.5-11.1) 02/03/19 07:50 Sodium 138 mmol/L (136-145) 02/03/19 07:50 Potassium 4.1 mmol/L (3.5-5.1) 02/03/19 07:50 Chloride 101 mmol/L (98-107) 02/03/19 07:50 Carbon Dioxide 30 mmol/L (21-32) 02/03/19 07:50 Anion Gap 7 MMOL/L (8-16) L 02/03/19 07:50 BUN 12 mg/dL (7-18) 02/03/19 07:50 Creatinine 1.0 mg/dL (0.55-1.3) 02/03/19 07:50 Est GFR (CKD-EPI)AfAm 119.02 02/03/19 07:50 Est GFR (CKD-EPI)NonAf 102.69 02/03/19 07:50 Random Glucose 85 mg/dL (74-106) 02/03/19 07:50 Calcium 9.2 mg/dL (8.5-10.1) 02/03/19 07:50 Total Bilirubin 0.4 mg/dL (0.2-1) 02/03/19 07:50 AST 18 U/L (15-37) 02/03/19 07:50 ALT 23 U/L (13-61) 02/03/19 07:50 Alkaline Phosphatase 64 U/L (45-117) 02/03/19 07:50 Total Protein 7.0 g/dl (6.4-8.2) 02/03/19 07:50 Albumin 4.2 g/dl (3.4-5.0) 02/03/19 07:50 RPR Titer Nonreactive (NONREACTIVE) 02/03/19 07:50 lab noted Assessment: 02/04/19 11:20 opiate withdrawal sx Plan: continue detox
[2019-02-04] MEDS: hydrOXYzine PAMOATE 25 MG CAPSULE (FP) PO PRN (21:23)
[2019-02-04] MEDS: THIAMINE HCL 100 MG TABLET (FP) PO SCH (21:23)
[2019-02-04] MEDS: BACITRACIN 0.9 GM PACKET TP SCH (22:10)
[2019-02-05] MEDS ORDERED: METHADONE HCL 10 MG TABLET (FOR DETOX USE ONLY) PO ONE (10:00)
[2019-02-05] MEDS: NICOTINE 14 MG/24 HOURS TOPICAL PATCH TD SCH (10:06)
[2019-02-05] MEDS: PRENATAL VITAMINS W/ FOLIC ACID TABLET (FP) PO SCH (10:06)
[2019-02-05] MEDS: BACITRACIN 0.9 GM PACKET TP SCH (10:06)
[2019-02-05] MEDS: NICOTINE POLACRILEX 2 MG GUM BUC PRN ×3 (10:07→15:04)
--- NOTE | 2019-02-05 13:28 | PN ---
[facility] COWS - Scale Resting Pulse: 0= DE 80 or Below Sweatin= Chills/Flushing Restless Observation: 0= Sits Still Pupil Size: 0= Normal to Room Light Bone or Joint Aches: 1= Mild Discomfort Runny Nose/ Eye Tearin= Nasal Congestion GI Upset > 30mins: 1= Stomach Cramp Tremor Observation of Outstretched Hands: 1= Tremor [place], Not Seen Yawning Observation: 1= 1-2x During Session Anxiety or Irritability: 1=Feels Anxious/Irritable Goose Flesh Skin: 0=Smooth Skin COWS Score: 7 S Progress Note (SOAP) Subjective: FEELING BETTER TODAY DISCUSS AFTER CARE WITH STAFF [facility]NC[facility] MEDICATION ASSISTED MAINTENANCE TREATMENT PROGRAM Objective: 02/05/19 13:28 Vital Signs Temperature 98.4 F 02/05/19 13:11 Pulse Rate 61 02/05/19 13:11 Respiratory Rate 18 02/05/19 13:11 Blood Pressure 134/89 02/05/19 13:11 O2 Sat by Pulse Oximetry (%) Laboratory Last Values WBC 9.6 K/mm3 (4.0-10.0) 02/03/19 07:50 RBC 4.83 M/mm3 (4.00-5.60) 02/03/19 07:50 Hgb 14.7 GM/dL (11.7-16.9) 02/03/19 07:50 Hct 44.3 % (35.4-49) 02/03/19 07:50 MCV 91.6 fl (80-96) 02/03/19 07:50 MCH 30.4 pg (25.7-33.7) 02/03/19 07:50 MCHC 33.2 g/dl (32.0-35.9) 02/03/19 07:50 RDW 12.9 % (11.9-15.9) 02/03/19 07:50 Plt Count 263 K/MM3 (134-434) D 02/03/19 07:50 MPV 9.1 fl (7.5-11.1) 02/03/19 07:50 Sodium 138 mmol/L (136-145) 02/03/19 07:50 Potassium 4.1 mmol/L (3.5-5.1) 02/03/19 07:50 Chloride 101 mmol/L (98-107) 02/03/19 07:50 Carbon Dioxide 30 mmol/L (21-32) 02/03/19 07:50 Anion Gap 7 MMOL/L (8-16) L 02/03/19 07:50 BUN 12 mg/dL (7-18) 02/03/19 07:50 Creatinine 1.0 mg/dL (0.55-1.3) 02/03/19 07:50 Est GFR (CKD-EPI)AfAm 119.02 02/03/19 07:50 Est GFR (CKD-EPI)NonAf 102.69 02/03/19 07:50 Random Glucose 85 mg/dL (74-106) 02/03/19 07:50 Calcium 9.2 mg/dL (8.5-10.1) 02/03/19 07:50 Total Bilirubin 0.4 mg/dL (0.2-1) 02/03/19 07:50 AST 18 U/L (15-37) 02/03/19 07:50 ALT 23 U/L (13-61) 02/03/19 07:50 Alkaline Phosphatase 64 U/L (45-117) 02/03/19 07:50 Total Protein 7.0 g/dl (6.4-8.2) 02/03/19 07:50 Albumin 4.2 g/dl (3.4-5.0) 02/03/19 07:50 RPR Titer Nonreactive (NONREACTIVE) 02/03/19 07:50 LAB NOTED 02/05/19 13:29 Assessment: 02/05/19 13:29 OPIATE WITHDRAWAL SX Plan: CONTINUE DETOX
[2019-02-05] MEDS: NICOTINE POLACRILEX 4 MG GUM BUC PRN ×2 (17:14→19:47)
[2019-02-05] MEDS: THIAMINE HCL 100 MG TABLET (FP) PO SCH (21:38)
[2019-02-06] MEDS: NICOTINE POLACRILEX 4 MG GUM BUC PRN (05:46)
[2019-02-06] MEDS ORDERED: METHADONE HCL 5 MG TABLET (FOR DETOX USE ONLY) PO ONE (06:00)
[2019-02-06 06:28] VITALS: BP 118/65; PULSE 51; TEMP 96.4
--- NOTE | 2019-02-06 15:55 | DS ---
[facility] Detox Discharge Summary Admission Date: 02/02/19 Discharge Date: 02/06/19 - History Present History: Alcohol Dependence Additional Comments: 28 years old male admitted on 02/02/19 for opiate withdrawal stabilization completed detox regimen aftercare [facility] Pertinent Past History: bring in medication list and lab report to aftercare appointment encourage slat pickler narcan from pharmacy - Physical Exam Results Vital Signs: Vital Signs Temperature 96.4 F L 02/06/19 06:27 Pulse Rate 51 L 02/06/19 06:27 Respiratory Rate 18 02/06/19 06:27 Blood Pressure 118/65 02/06/19 06:27 O2 Sat by Pulse Oximetry (%) Pertinent Admission Physical Exam Findings: opiate withdrawal sx Laboratory Last Values WBC 9.6 K/mm3 (4.0-10.0) 02/03/19 07:50 RBC 4.83 M/mm3 (4.00-5.60) 02/03/19 07:50 Hgb 14.7 GM/dL (11.7-16.9) 02/03/19 07:50 Hct 44.3 % (35.4-49) 02/03/19 07:50 MCV 91.6 fl (80-96) 02/03/19 07:50 MCH 30.4 pg (25.7-33.7) 02/03/19 07:50 MCHC 33.2 g/dl (32.0-35.9) 02/03/19 07:50 RDW 12.9 % (11.9-15.9) 02/03/19 07:50 Plt Count 263 K/MM3 (134-434) D 02/03/19 07:50 MPV 9.1 fl (7.5-11.1) 02/03/19 07:50 Sodium 138 mmol/L (136-145) 02/03/19 07:50 Potassium 4.1 mmol/L (3.5-5.1) 02/03/19 07:50 Chloride 101 mmol/L (98-107) 02/03/19 07:50 Carbon Dioxide 30 mmol/L (21-32) 02/03/19 07:50 Anion Gap 7 MMOL/L (8-16) L 02/03/19 07:50 BUN 12 mg/dL (7-18) 02/03/19 07:50 Creatinine 1.0 mg/dL (0.55-1.3) 02/03/19 07:50 Est GFR (CKD-EPI)AfAm 119.02 02/03/19 07:50 Est GFR (CKD-EPI)NonAf 102.69 02/03/19 07:50 Random Glucose 85 mg/dL (74-106) 02/03/19 07:50 Calcium 9.2 mg/dL (8.5-10.1) 02/03/19 07:50 Total Bilirubin 0.4 mg/dL (0.2-1) 02/03/19 07:50 AST 18 U/L (15-37) 02/03/19 07:50 ALT 23 U/L (13-61) 02/03/19 07:50 Alkaline Phosphatase 64 U/L (45-117) 02/03/19 07:50 Total Protein 7.0 g/dl (6.4-8.2) 02/03/19 07:50 Albumin 4.2 g/dl (3.4-5.0) 02/03/19 07:50 RPR Titer Nonreactive (NONREACTIVE) 02/03/19 07:50 lab noted encourage medication assisted treatment maintenance program - Treatment Hospital Course: Detox Protocol Followed, Detoxed Safely, Responded well, Discharged Condition Good, Rehab Referral Accepted Patient has Accepted a Rehab Referral to: [facility] - Medication Discharge Medications: Ambulatory Orders Naloxone HCl [Narcan] 4 mg NS PRN #1 spray 02/06/19 - Diagnosis (1) Nicotine dependence Status: Acute Qualifiers: Nicotine product type: cigarettes Substance use status: in withdrawal Qualified Code(s): F17.213 - Nicotine dependence, cigarettes, with withdrawal (2) Opioid dependence with withdrawal Status: Acute - AMA Did Patient Leave Against Medical Advice: No
== END 2019-02-06 09:10 | disposition home or self-care (01) | DRG 773 ==
LOC: YASAS 19:26 → Y3N 22:51
PROVIDERS: ADMIT Surgery; ATTEND Surgery
PROC: HZ2ZZZZ Detoxification Services for Substance Abuse Treatment (ICD-10-PCS; principal; 2019-02-02)
DX: F11.23 Opioid dependence with withdrawal (principal); F17.210 Nicotine dependence, cigarettes, uncomplicated; I10 Essential (primary) hypertension
CPT/HCPCS: 36415; 80053; 85027; 86593